=== PATIENT | female | born 1995 | race Caucasian/White ===

== ENCOUNTER 2022-01-06 22:03 | Emergency (ER) | payer BC, OTHER, SELFPAY ==
[2022-01-06 22:06] VITALS: BP 121/74; PULSE 88; RESP 18; TEMP 37.1; O2SAT 99; BMI 28.3
[2022-01-06 22:41] LABS: Microscopic, Urine URINE MICROSCOPIC (MICROSCOPIC)
[2022-01-06 22:43] LABS: Appearance,Urine CLOUDY (Clear); Bilirubin,Urine Negative (Negative); Blood, Urine 2+ (Negative); Color,Urine YELLOW (Yellow); Glucose,Urine (UA) Negative (Negative); Ketones,Urine Negative (Negative); Leukocyte Esterase,Urine 1+ (Negative); Nitrate,Urine Negative (Negative); Protein,Urine 1+ (Negative); Specific Gravity, Urine >= 1.030 (1.005-1.030); Urobilinogen,Urine 0.2 EU/dl (0.2)
--- NOTE | 2022-01-06 22:44 | [facility].EDNVD ---
ED Disposition Clinical Impression: Cholelithiasis Qualifiers: Cholelithiasis location: gallbladder Cholecystitis presence: without cholecystitis Biliary obstruction: without biliary obstruction Qualified Code(s): K80.20 - Calculus of gallbladder without cholecystitis without obstruction Disposition: Home, Self-Care Condition on Discharge: Good Instructions: DI for Gallstones Additional Instructions: fluids and see pcp for follow up and gb u/s Referrals: Provider,Referral, MD [Primary Care Provider] - - Critical Care Critical Care Time: No Attestation: On 01/06/22, the high probability of a clinically significant, sudden or life threatening deterioration of the following system(s) required my full and direct attention, intervention and personal management. The time I documented below is in addition to time spent performing reported procedures but includes the following listed in this critical care notation. Medical Decision Making - Medical Records Medical records reviewed: Yes: I reviewed the patient's medical records. - Georges Inquiry Pt receiving controlled substance: No Vital Signs: 01/06/22 22:06 01/06/22 22:59 01/06/22 23:30 Temperature 98.8 F Temperature Source Oral Pulse Rate 89 79 Pulse Rate [Left Radial] 88 Respiratory Rate 18 Blood Pressure 142/93 H 112/66 Blood Pressure [Right Arm] 121/74 Blood Pressure Mean [Right Arm] 89 Blood Pressure Source [Right Arm] Automatic Cuff Blood Pressure Position [Right Arm] Sitting 02 Sat by Pulse Oximetry 99 99 99 Oxygen Delivery Method Room Air Room Air Room Air - Lab Data Lab results reviewed: Yes: I reviewed the patient's lab results. Lab Results 01/06/22 22:36: Urine HCG, Qual Negative 01/06/22 22:39: Urine Color Yellow, Urine Appearance Cloudy, Urine pH 6.0, Ur Specific [place] >= 1.030, Urine Protein 1+, Urine Glucose (UA) Negative, Urine Ketones Negative, Urine Blood 2+, Urine Nitrate Negative, Urine Bilirubin Negative, Urine Urobilinogen 0.2, Ur Leukocyte Esterase 1+ A, Urine RBC 5-10, Urine WBC 20-50, Ur Squamous Epith Cells 5-10, Urine Bacteria 2+ 01/06/22 22:40: WBC 14.7 H, RBC 4.38, Hgb 13.4, Hct 40.7, MCV 92.9, MCH 30.6, MCHC 33.0, RDW 13.7, Plt Count 410, MPV 7.5, Neut % (Auto) 74.0, Lymph % (Auto) 16.8, [place] % (Auto) 4.2, Eos % (Auto) 3.9, Baso % (Auto) 1.1, Neut # (Auto) 10.9 H, Lymph # (Auto) 2.5, Howell # (Auto) 0.6, Eos # (Auto) 0.6 H, Baso # (Auto) 0.2 01/06/22 22:40: Sodium 136, Potassium 3.8, Chloride 103, Carbon Dioxide 26, Anion Gap 10.8, BUN 8, Creatinine 0.60, Estimated Creat Clear 171, Estimated GFR 120, Est GFR ( Amer) 145, Glucose 110 H, Calcium 9.2, Total Bilirubin 0.4, AST 49 H, ALT 31, Alkaline Phosphatase 104, C-Reactive Protein 7.1 H, Total Protein 7.2, Albumin 4.1, Globulin 3.1, Albumin/Globulin Ratio 1.3, Amylase 80, Lipase 204 01/06/22 22:40: Lactate 1.1 Result diagrams: 01/06/22 22:40 01/06/22 22:40 Orders (Tests/Meds): ED MEDICATIONS Generic Name Dose Route Start Last Admin Trade Name Freq PRN Reason Stop Dose Admin Sodium Chloride 1,000 mls @ 999 mls/hr 01/06/22 22:30 01/06/22 22:39 Sod Chlor 0.9% 1000ml Bag IV 01/06/22 23:30 999 mls/hr .Q1H1M NESSA Administration Discontinued Medications Generic Name Dose Route Start Last Admin Trade Name Freq PRN Reason Stop Dose Admin Acetaminophen/Codeine Phosphate 1 packet 01/07/22 00:04 Acetaminophen 300mg W/Codeine 30mg Take Home Pack (6) PO 01/07/22 00:05 ONCE ONE Ketorolac Tromethamine 30 mg 01/06/22 22:52 01/06/22 22:55 Ketorolac 30mg/Ml Vial IV 01/06/22 22:53 30 mg ONCE ONE Administration Ondansetron HCl 4 mg 01/06/22 22:53 01/06/22 22:55 Ondansetron 4mg/2ml Vial IV 01/06/22 22:54 4 mg ONCE ONE Administration ORDERS Category Date Time Status Complete Blood Count Auto Diff Stat Lab 01/06/22 22:40 Results Erythrocyte Sedimentation Rate Stat Lab 01/06/22 22:40 Results Blood Culture S
--- NOTE | 2022-01-06 22:45 | CT_ITS ---
PROCEDURE INFORMATION: Exam: CT Abdomen And Pelvis Without Contrast Exam date and time: 01/06/2022 11:02 PM Age: 26 years old Clinical indication: Abdominal pain; Localized; Patient HX: Right sided abdomen pain, radiates posterior; Started tonight; Additional info: Abd pain TECHNIQUE: Imaging protocol: Computed tomography of the abdomen and pelvis without contrast. Radiation optimization: All CT scans at this facility use at least one of these dose optimization techniques: automated exposure control; mA and/or kV adjustment per patient size (includes targeted exams where dose is matched to clinical indication); or iterative reconstruction. COMPARISON: No relevant prior studies available. FINDINGS: Lungs: No mass/infiltrate at either lung base. No pleural effusion. Liver: The liver is normal in size and attenuation. No intrahepatic biliary dilitation. Gallbladder and bile ducts: There are fine calcified gallstones identified along the dependent portion of the gallbladder lumen. The gallbladder wall does not appear thickened. No evidence of pericholecystic effusion. There is no extrahepatic biliary dilatation. Pancreas: Normal. No ductal dilation. Spleen: Normal. No splenomegaly. Adrenal glands: Normal. No mass. Kidneys and ureters: Normal. No hydronephrosis. Stomach and bowel: There is fecalization of 1 or 2 loops of mid and terminal ileum on the present examination. This is without evidence of obstruction. This could represent the effect of bacterial overgrowth. Prominent distention of the stomach with food, fluid, and air. No obstruction. No mucosal thickening. Small bowel mesentery is normal. Appendix: The appendix is poorly visualized on this examination. There is no evidence of acute inflammatory process within the right lower quadrant. Intraperitoneal space: Unremarkable. No free air. No significant fluid collection. Vasculature: Unremarkable. No abdominal aortic aneurysm. There are calcified phleboliths within the pelvis. Lymph nodes: Unremarkable. No enlarged lymph nodes. Urinary bladder: Unremarkable as visualized. Reproductive: The uterus appears enlarged. The possibility of fibroid uterus is considered. Correlation with ultrasound of the pelvis with transvaginal and Doppler sonography would be helpful. Bones/joints: Unremarkable. No acute fracture. Soft tissues: There is a tiny umbilical hernia which contains fat. IMPRESSION: 1. There are fine calcified gallstones noted along the dependent portion of the gallbladder lumen. The gallbladder wall does not appear thickened and there is no evidence of pericholecystic effusion. 2. Fecalization of 1 or 2 loops of mid and terminal ileum. This is without evidence of obstruction. This could represent the effect of small bowel bacterial overgrowth. Prominent gastric distention. 3. Limited visualization of the appendix. No evidence of acute inflammatory process within the right lower quadrant. 4. Uterine enlargement. Correlation with ultrasound of the pelvis with transvaginal and Doppler sonography would be helpful. 5. There is a tiny umbilical hernia which contains fat
[2022-01-06 22:47] LABS: Urine Pregnancy, HCG Qual. Negative (Negative)
[2022-01-06 22:54] LABS: Basophils # 0.2 K/mm3 (0-0.2); Basophils % 1.1 % (0.1-2.0); Eosinophils # 0.6 K/mm3 (0.0-0.4); Eosinophils % 3.9 % (0.1-12.0); Hematocrit 40.7 % (37.0-47.0); Hemoglobin 13.4 g/dL (12.2-16.2); Lymphocytes # 2.5 K/mm3 (0.7-4.5); Lymphocytes % 16.8 % (10-50); Mean Corpuscular Hemoglobin 30.6 pg (27.0-31.2); Mean Corpuscular Volume 92.9 fl (81-99); Mean Platelet Volume 7.5 fl (7.4-10.4); Monocytes # 0.6 K/mm3 (0.1-1.0); Monocytes % 4.2 % (1.7-9.3); Neutrophils # 10.9 K/mm3 (1.8-7.8); Platelet Count 410 K/mm3 (142-424); Red Blood Count 4.38 M/mm3 (4.20-5.40); Red Cell Distribution Width 13.7 % (11.5-17.5); White Blood Count 14.7 K/mm3 (4.8-10.8)
[2022-01-06 22:58] LABS: Chloride 103 mmol/L (98-107); Potassium 3.8 mmoL/L (3.5-5.1); Sodium 136 mmol/L (136-145)
[2022-01-06 22:59] VITALS: BP 142/93; PULSE 89; O2SAT 99
[2022-01-06 23:00] LABS: Amylase 80 U/L (30-110); Blood Urea Nitrogen 8 mg/dl (7-17); Creatinine Clearance Estimated 171 mL/min (50-200); Estimated Glomerular Filt Rate 120 ml/min (>60); GFR (African American) 145 ML/MIN (>60); Lactic Acid 1.1 mmol/L (0.7-2.1)
[2022-01-06 23:01] LABS: Alanine Aminotransferase 31 U/L (12-78); Albumin Level 4.1 g/dl (3.5-5.0); Albumin/Globulin Ratio 1.3 (1.1-1.8); Alkaline Phosphatase 104 U/L (38-126); Anion Gap 10.8 mEq/L (5-15); Aspartate Amino Transferase 49 U/L (14-36); Bilirubin,Total 0.4 mg/dl (0.2-1.3); Calcium 9.2 mg/dl (8.4-10.2); Carbon Dioxide 26 mmol/L (22.0-30.0); Globulin 3.1 g/dL (1.3-3.2); Glucose 110 mg/dl (74-100); Lipase 204 U/L (23-300); Total Protein,Serum 7.2 g/dl (6.3-8.2)
[2022-01-06 23:07] LABS: C-Reactive Protein 7.1 mg/L (0-4)
[2022-01-06 23:14] LABS: Bacteria,Urine 2+ /lpf; WBC,Urine 20-50 #/hpf (0-3)
[2022-01-06 23:30] VITALS: BP 112/66; PULSE 79; O2SAT 99
[2022-01-07 00:24] LABS: Erythrocyte Sedimentation Rate 26 mm/hr (0-20)
[2022-01-07 00:27] VITALS: BP 110/73; PULSE 83; RESP 18; TEMP 36.6; O2SAT 99
== END 2022-01-07 00:29 | disposition home or self-care (01) ==
PROVIDERS: Emergency Provider Emergency Medicine
DX: K80.20 Calculus of gallbladder without cholecystitis without obstruction (principal); O90.89 Other complications of the puerperium, not elsewhere classified
CPT/HCPCS: 74176; 80053; 81001; 81025; 82150; 83605; 83690; 85025; 85651; 86140; 87040; 87086; 96365; 96375; 99284; J2405